=== PATIENT | male | born 2000 | race Caucasian/White ===

== ENCOUNTER 2020-11-24 10:59 | Emergency (ER) | payer OTHER, SELFPAY ==
--- NOTE | ~2020-11-24 | CT_ITS ---
EXAMINATION: CT abdomen pelvis w con DATE: 11/24/2020 13:30 INDICATION: Abdominal pain TECHNIQUE: Computed tomography (CT) of the abdomen and pelvis was performed with 100 mL Omnipaque-350 intravenous contrast. Automated exposure control and iterative reconstruction technique were employe d. The dose-length product was 191.61 mGy-cm. COMPARISON: None FINDINGS: Lung bases are clear. Heart size is normal. No pericardial or pleural effusion. Focal hepatic steatos is at the ligamentum teres. Gallbladder, spleen, pancreas, bilateral adrenal glands and kidneys are n ormal. Bowels including the appendix are normal. Bladder is normal. No free intraperitoneal gas or fl uid. No pathologically enlarged abdominal or pelvic lymphadenopathy. Bones are unremarkable. IMPRESSION: 1. No acute intra-abdominal/pelvic process. Reviewed, dictated and finalized at location B.
[2020-11-24 11:16] VITALS: BP 123/90; PULSE 82; RESP 16; TEMP 36.1; O2SAT 100
[2020-11-24 11:59] LABS: Basophils Absolute Auto 0.1 K/mm3 (0.0-0.1); Basophils Percent Auto 0.5 % (0.2-1.2); Eosinophils Absolute Auto 0.4 K/mm3 (0-0.3); Eosinophils Percent Auto 2.4 % (0-4.4); Hematocrit 48.8 % (42.0-52.0); Hemoglobin 16.4 g/dL (14.0-18.0); Immature Granulocyte Absolute 0.05 K/mm3 (0.00-0.031); Immature Granulocyte Percent A 0.3 % (0-0.5); Lymphocytes Absolute Auto 3.52 K/mm3 (0.9-3.2); Lymphocytes Percent Auto 23.2 % (18.3-44.2); Mean Corpuscular HGB Conc 33.6 g/dl (32-36); Mean Corpuscular Hemoglobin 29.8 pg (26-34); Mean Corpuscular Volume 88.7 fl (80-100); Mean Platelet Volume 9.1 fl (7.4-10.4); Monocytes Absolute Auto 1.1 K/mm3 (0.1-0.6); Monocytes Percent Auto 6.9 % (2.6-8.5); Neutrophils Absolute Auto 10.1 K/mm3 (1.3-6.7); Neutrophils Percent Auto 66.7 % (45.5-73.1); Platelet Count Result 338 k/mm3 (150-375); Red Cell Distribution Width 12.4 % (11.5-14.5); White Blood Count 15.2 K/mm3 (4.5-10.0)
[2020-11-24 12:04] LABS: Alanine Aminotransferase 45 U/L (4-50); Alkaline Phosphatase 86 U/L (38-126); Anion Gap 7 mmol/L (8-16); Aspartate Amino Transferase 47 U/L (17-59); Bilirubin,Total 0.5 mg/dL (0.2-1.3); Blood Urea Nitrogen 12 mg/dL (9-20); Calcium 9.9 mg/dL (8.4-10.2); Carbon Dioxide 32 mmol/L (22-30); Chloride 99 mmol/L (98-107); Estimated CRCL calculation 94 ml/min; Estimated Glomerular Filt Rate > 60; Glucose 94 mg/dL (65-110); Lipase 50 U/L (23-300); Potassium 3.8 mmol/L (3.4-5.0); Sodium 138 mmol/L (137-145)
[2020-11-24 12:28] LABS: Add Urine Microscopic? YES; Amorphous Sediment Urine Few; Appearance Urine Cloudy (Clear); Bacteria Urine Trace /hpf; Bilirubin Urine 2+ (Negative); Blood Urine Negative (Negative); Color Urine Yellow (Yellow); Glucose Urine UA Negative (Negative); Ketones Urine Negative (Negative); Leukocyte Esterase Ur 1+ LEU/UL (Negative); Mucus Urine Heavy /lpf; Nitrate Urine Negative (Negative); Protein Urine 2+ mg/dL (Negative); Specific Grav Ur 1.029 (1.001-1.035); Squamous Epithelial Cell Urine Rare /hpf (Few); WBC Urine 31-50 /hpf
[2020-11-24 12:50] VITALS: BP 121/82; PULSE 88; RESP 20; TEMP 37.1; O2SAT 100
[2020-11-24 13:20] VITALS: BP 119/82; PULSE 84; RESP 18; O2SAT 100
--- NOTE | 2020-11-24 13:53 | ED.ABDPAIN ---
HPI - Abdominal Pain General Chief Complaint: Abdominal Pain Stated Complaint: Abd Pain Time Seen by Provider: 11/24/20 12:38 Source: patient Mode of arrival: ambulatory Limitations: no limitations History of Present Illness HPI narrative: 20-year-old with no major medical problems here with complaints of periumbilical pain for past 2 days. He denies nausea, vomiting or fever or chills. No history of altered bowel habits. No history of trauma or any lifting injuries. MD elicited complaint: abdominal pain Onset (ago): day(s) (1) Pain Consistency: intermittent Location: periumbilical Quality: aching Radiation: none Migration to: no migration Exacerbating factors: nothing Relieving factors: nothing Associated symptoms: denies other symptoms Related Data Allergies Allergy/AdvReac Type Severity Reaction Status Date / Time No Known Allergies Allergy Verified 11/24/20 12:46 Review of Systems Review of Systems: All systems reviewed & are unremarkable except as noted in HPI and below Constitutional: Constitutional: Reports no additional constitutional complaints Eyes: Eyes: Reports no additional eye complaints ENT: Reports system reviewed and no additional complaints, except as documented Cardiovascular: Cardiovascular: Reports no additional cardiovascular complaints Respiratory: Respiratory: Reports no additional respiratory complaints Musculoskeletal: Musculoskeletal: Reports no additional musculoskeletal complaints Integumentary/Breasts: Skin/Breast: Reports system reviewed and no additional complaints, except as docu Neurologic: Reports system reviewed and no additional complaints, except as documented Psychiatric: Psychiatric: Reports no additional psychiatric complaints Exam Narrative: GENERAL: Well-appearing, well-nourished, and in no acute distress. HEAD: Normocephalic, atraumatic. EYES: PERRLA and EOMI. NECK: Supple. CHEST: Clear to auscultation. No respiratory distress. HEART: Regular rate and rhythm. No murmur heard. Normal peripheral pulses. ABDOMEN: Soft, nontender, nondistended, normal active bowel sounds. EXTREMITIES: Normal range of motion. No edema. SKIN: Warm, dry, no rash. NEURO: No focal deficits. Alert and oriented x3. PSYCH: Normal mood and affect. Course Course Emergency Course: Inform patient about his lab work, CT findings. Patient states that he has no pain at this time. Advised him to take antibiotic as prescribed for his urinary tract infection. Vital Signs Vital signs: Vital Signs Temperature 36.1 C L 11/24/20 11:16 Pulse Rate 82 11/24/20 11:16 Respiratory Rate 16 11/24/20 11:16 Blood Pressure 123/90 11/24/20 11:16 Pulse Oximetry 100 11/24/20 11:16 Temperature 36.1 C L 11/24/20 11:16 Pulse Rate 82 11/24/20 11:16 Respiratory Rate 16 11/24/20 11:16 Blood Pressure 123/90 11/24/20 11:16 Pulse Oximetry 100 11/24/20 11:16 MDM - Abdominal Pain Lab Data Result diagrams: 11/24/20 11:44 11/24/20 11:44 Labs: Lab Results 11/24/20 11/24/20 11/24/20 Range/Units 11:44 11:44 11:44 WBC 15.2 H (4.5-10.0) K/mm3 RBC 5.50 (4.6-6.20) M/mm3 Hgb 16.4 (14.0-18.0) g/dL Hct 48.8 (42.0-52.0) % MCV 88.7 (80-100) fl MCH 29.8 (26-34) pg MCHC 33.6 (32-36) g/dl RDW 12.4 (11.5-14.5) % Plt Count 338 (150-375) k/mm3 MPV 9.1 (7.4-10.4) fl Immature Gran % (Auto) 0.3 (0-0.5) % Neut % (Auto) 66.7 (45.5-73.1) % Lymph % (Auto) 23.2 (18.3-44.2) % Ogle % (Auto) 6.9 (2.6-8.5) % Eos % (Auto) 2.4 (0-4.4) % Baso % (Auto) 0.5 (0.2-1.2) % Lymph # (Auto) 3.52 H (0.9-3.2) K/mm3 Ogle # (Auto) 1.1 H (0.1-0.6) K/mm3 Eos # (Auto) 0.4 H (0-0.3) K/mm3 Baso # (Auto) 0.1 (0.0-0.1) K/mm3 Abs Immat Gran (auto) 0.05 H (0.00-0.031) K/mm3 Absolute Neuts (auto) 10.1 H (1.3-6.7) K/mm3 Absolute Nucleated RBC 0.0 (0.0-0.012) K/mm3 Nucleated RBC %
[2020-11-24 14:20] VITALS: BP 118/72; PULSE 85; RESP 18; O2SAT 99
[2020-11-24 14:30] VITALS: BP 119/82; PULSE 90; RESP 20; O2SAT 100
== END 2020-11-24 14:30 | disposition home or self-care (01) ==
PROVIDERS: Emergency Medicine; Emergency Provider Family Medicine
DX: N30.00 Acute cystitis without hematuria (principal); R10.33 Periumbilical pain
CPT/HCPCS: 36415; 74177; 80053; 81001; 83690; 85025; 87086; 87088; 99283; J3010; Q9967

== ENCOUNTER 2022-05-06 08:10 | Observation (INO) | payer MEDICAID, SELFPAY ==
[2022-05-06] VITALS (9 sets, daily range): BP systolic 100–142; BP diastolic 62–89; PULSE 43–93; RESP 15–18; TEMP 36.5–37.1; O2SAT 96–99
--- NOTE | ~2022-05-06 | CT_ITS ---
EXAMINATION: CT abdomen pelvis w con DATE: 05/06/2022 09:33 INDICATION: Right lower quadrant abdominal pain. TECHNIQUE: Computed tomography (CT) of the abdomen and pelvis was performed with 100 mL Omnipaque-350 intravenous contrast. Automated exposure control and iterative reconstruction technique were employe d. The dose-length product was 232.36 mGy-cm. COMPARISON: 11/24/2020 FINDINGS: Lung bases are clear. Heart size is normal. No pericardial or pleural effusion. Focal hepatic steatos is at the ligamentum teres. Mild periportal edema. There is also a trace amount of fluid situated bet ween the liver and the otherwise normal-appearing gallbladder. Liver, pancreas, bilateral adrenal gla nds and left kidney are normal. 2 mm stone at the distalmost right ureter within 1 cm of the ureterov esicular junction with mild right hydroureteronephrosis and delayed right nephrogram. Partially decom pressed bladder is normal. Bowels including the appendix are normal. No free intraperitoneal gas or f luid. No pathologically enlarged abdominal or pelvic lymphadenopathy. Bones are unremarkable. IMPRESSION: 1. Obstructing 2 mm stone at the distalmost right ureter with mild right hydroureteronephrosis. 2. Mild periportal edema and trace amount of pericholecystic fluid. This can be seen in the setting o f pyelonephritis although there are no typical regions of renal parenchymal hypoperfusion to more spe cifically suggest this, given the hydronephrosis would correlate with urinalysis to exclude associate d ascending urinary tract infection. Differential would also include hepatitis or other liver disease , heart failure or other cause of elevated right heart pressure and aggressive fluid resuscitation. Reviewed, dictated and finalized at location L. IMPRESSION: 1. Obstructing 2 mm stone at the distalmost right ureter with mild right hydrou reteronephrosis. 2. Mild periportal edema and trace amount of pericholecystic fluid. This can be seen in the setting of pyelonephritis although there are no typical regions of renal parenchymal hypoperfusion to more specifically suggest this, given the h ydronephrosis would correlate with urinalysis to exclude associated ascending u rinary tract infection. Differential would also include hepatitis or other live r disease, heart failure or other cause of elevated right heart pressure and ag gressive fluid resuscitation.
--- NOTE | ~2022-05-06 | US_ITS ---
EXAMINATION: US abdomen limited DATE: 05/06/2022 11:00 INDICATION: Right upper quadrant abdominal pain. TECHNIQUE: Multiple grayscale and Doppler ultrasound images of the abdomen were obtained. COMPARISON: CT abdomen and pelvis 05/06/2022 FINDINGS: The visualized portions of the body of the pancreas are normal. The liver is normal without focal lesion. There is normal flow in main portal vein. The gallbladder is normal in size. No gallst ones. Gallbladder wall thickening is seen. The common duct is normal and measures 4 mm. IMPRESSION: 1. Gallbladder wall thickening, most likely secondary to interstitial edema. Reviewed, dictated and finalized at location A.
[2022-05-06 08:36] LABS: Basophils Absolute Auto 0.1 K/mm3 (0.0-0.1); Basophils Percent Auto 0.3 % (0.2-1.2); Hematocrit 46.8 % (42.0-52.0); Immature Granulocyte Absolute 0.09 K/mm3 (0.00-0.031); Immature Granulocyte Percent A 0.4 % (0-0.5); Lymphocytes Absolute Auto 1.23 K/mm3 (0.9-3.2); Lymphocytes Percent Auto 5.4 % (18.3-44.2); Mean Corpuscular HGB Conc 34.2 g/dl (32-36); Mean Corpuscular Hemoglobin 29.6 pg (26-34); Mean Corpuscular Volume 86.7 fl (80-100); Monocytes Absolute Auto 1.4 K/mm3 (0.1-0.6); Monocytes Percent Auto 6.2 % (2.6-8.5); Neutrophils Absolute Auto 20.1 K/mm3 (1.3-6.7); Neutrophils Percent Auto 87.7 % (45.5-73.1); Platelet Count Result 310 k/mm3 (150-375); Red Cell Distribution Width 13.4 % (11.5-14.5); White Blood Count 22.9 K/mm3 (4.5-10.0)
--- NOTE | 2022-05-06 08:40 | ED.ABDPAIN ---
HPI - Abdominal Pain General Chief Complaint: Abdominal Pain Stated Complaint: vomiting Time Seen by Provider: 05/06/22 08:23 Source: patient and family Mode of arrival: ambulatory Limitations: no limitations History of Present Illness HPI narrative: The patient is a 21 yo male presenting to the emergency department for evaluation of nausea, vomiting, right lower quadrant abdominal pain. Pain began abruptly this morning at 2 AM. Patient states that awaken him from sleep. Patient reports associated nausea, nonbloody, nonbilious emesis. Patient states he feels dehydrated and has been unable to tolerate oral intake. Patient denies diarrhea or constipation. He denies dysuria or hematuria. Patient denies history of pain such as this in the past. Patient states that he got into a warm bathtub which did help improve his abdominal pain. Patient denies history of abdominal surgery or history of kidney stones. Patient does report history of daily smoking and marijuana use. He denies fever or chills. History was provided by speaking directly with the patient and his mother who is also at bedside. Related Data Allergies Allergy/AdvReac Type Severity Reaction Status Date / Time No Known Allergies Allergy Verified 05/06/22 11:51 Review of Systems Review of Systems: CONSTITUTIONAL: Denies fever, chills, or sweats. EYES: Denies visual changes, redness, or discharge. ENT: Denies rhinorrhea, congestion, sore throat, or otalgia. CARDIOVASCULAR: Denies chest pain, palpitations, or edema. RESPIRATORY: Denies cough or dyspnea. GASTROINTESTINAL: Reports abdominal pain, nausea and vomiting GENITOURINARY: Denies dysuria or hematuria. SKIN: Denies rash or itching. MUSCULOSKELETAL: Denies back pain, joint pain, or myalgia. NEUROLOGIC: Denies headache, numbness, or weakness. [facility] Past Medical History Medical History (Updated 05/06/22 @ 13:04 by Elidia Quinn MD) Asthma Cannabinoid hyperemesis syndrome Surgical History Surgical History (System 05/06/22 @ 11:51 by Gardenia Melendrez) History of tonsillectomy Social History Social History (System 05/06/22 @ 11:51 by Gardenia Melendrez) Smoking status: Current every day smoker Tobacco type: cigarettes Alcohol intake: current Substance use: current Substance use type: marijuana Living arrangements: with family Gender identity (if verbalized by the patient): Male Exam Narrative: GENERAL: Awake, alert, conversant, , Uncomfortable appearing HEAD: Normocephalic, atraumatic. EYES: PERRLA and EOMI. ENT: Nares clear, no rhinorrhea or epistaxis. Mucous membranes dry NECK: Supple. CHEST: No respiratory distress, breathing even and non labored HEART: Regular rate, sinus rhythm ABDOMEN:Non distended, tender in the right lower quadrant without rebound, rigidity or guarding, negative Rosvings sign, EXTREMITIES: Normal range of motion. No edema. SKIN: Warm, dry, no rash. NEURO:No focal deficits. Alert and oriented x3 Course Vital Signs Vital signs: Vital Signs Temperature 36.5 C 05/06/22 08:14 Pulse Rate 55 L 05/06/22 08:14 Respiratory Rate 16 05/06/22 08:14 Blood Pressure 136/89 05/06/22 08:14 Pulse Oximetry 99 05/06/22 08:14 Oxygen Delivery Room Air 05/06/22 08:14 Temperature 36.5 C 05/06/22 08:14 Pulse Rate 87 05/06/22 12:58 Respiratory Rate 18 05/06/22 12:58 Blood Pressure 142/75 H 05/06/22 12:58 Pulse Oximetry 98 05/06/22 12:58 Oxygen Delivery Room Air 05/06/22 08:14 MDM - Abdominal Pain MDM Narrative Medical decision making narrative: Medical decision making narrative: -Presentation: Patient is a 21-year-old male presenting to the emergency department for evaluation of right-sided abdominal pain, nausea and vomiting. At time of assessment, patient is mildly uncomfortable appearing, dehydrated appearing. He has focal right upper and right lower quadrant tenderness on exam. -DDX includes but is not limited to: Appe
[2022-05-06 08:47] LABS: Alanine Aminotransferase 64 U/L (6-50); Albumin Level 4.8 g/dL (3.5-5.1); Alkaline Phosphatase 87 U/L (38-126); Anion Gap 7 mmol/L (8-16); Aspartate Amino Transferase 112 U/L (17-59); Bilirubin,Total 0.8 mg/dL (0.2-1.3); Blood Urea Nitrogen 13 mg/dL (9-20); Calcium 9.4 mg/dL (8.4-10.2); Carbon Dioxide 28 mmol/L (22-30); Chloride 102 mmol/L (98-107); Estimated CRCL calculation 92 ml/min; Estimated Glomerular Filt Rate > 60; Glucose 125 mg/dL (65-110); Lipase 35 U/L (23-300); Potassium 3.6 mmol/L (3.4-5.0); Sodium 137 mmol/L (137-145)
[2022-05-06 08:53] LABS: Appearance Urine Cloudy (Clear); Bacteria Urine None Seen /hpf; Bilirubin Urine 2+ (Negative); Blood Urine 3+ (Negative); Color Urine Dark Yellow (Yellow); Glucose Urine UA Negative (Negative); Ketones Urine 4+ mg/dL (Negative); Leukocyte Esterase Ur 1+ LEU/UL (Negative); Mucus Urine Present /lpf; Nitrate Urine Negative (Negative); Protein Urine 3+ mg/dL (Negative); RBC Urine 21-50 /hpf (0-2); Squamous Epithelial Cell Urine None seen /hpf (Few); pH Urine 5.5 (5.0-9.0)
[2022-05-06 08:56] LABS: Specific Grav Ur 1.046 (1.001-1.035)
[2022-05-06 08:57] LABS: Add Urine Microscopic? YES
[2022-05-06] MEDS: SODIUM CHLORIDE 0.9% IV 1,000 ML 999 ML IV CONT ×2 (08:57→08:58)
[2022-05-06] MEDS: ONDANSETRON INJ 4 MG/2 ML VIAL IV PUSH (08:58)
[2022-05-06] MEDS: MORPHINE SULFATE (*CRX) 4 MG/ML INJ IV PUSH ×3 (10:28→19:09)
[2022-05-06] MEDS: DICYCLOMINE HCL INJ 20 MG/2 ML VIAL IM (12:56)
[2022-05-06] MEDS: LACTATED RINGERS 1,000 ML 125 ML IV CONT (12:56)
[2022-05-06] MEDS: CIPROFLOXACIN 400 MG/D5W 200ML 200 ML 200 MG IVPB ×2 (13:34→20:26)
--- NOTE | 2022-05-06 14:13 | PM.IMHP ---
H&P: HPI History of Present Illness Date/Time: 05/06/22 14:13 Chief Complaint: Abdominal pain Narrative: This is a 21-year-old male patient who came to the emergency room with nausea vomiting and right lower flank pain. The pain started around 2:00 a.m. this morning. The pain was so severe that it woke him from a sound sleep. The patient had nonbloody emesis. The patient states that he is not able to keep anything down. He denies any diarrhea or constipation. He denies any difficulty urinating. The he denies any previous kidney stones or any surgery for kidney stone. His white count was noted to be 22.9. Absolute neutrophils 20.1. AST is 112 and ALT is 64. Urine is positive for UTI. The patient was given IV Zofran IV fluids IV Tylenol IV morphine and Cipro in the emergency room. Abdominal pelvis CT was read as the following?Obstructing 2 mm stone at the distalmost right ureter with mild right hydroureteronephrosis. 2. Mild periportal edema and trace amount of pericholecystic fluid. This can be seen in the setting of pyelonephritis although there are no typical regions of renal parenchymal hypoperfusion to more specifically suggest this, given the hydronephrosis would correlate with urinalysis to exclude associated ascending urinary tract infection. Differential would also include hepatitis or other liver disease, heart failure or other cause of elevated right heart pressure and aggressive fluid resuscitation. Abdominal ultrasound was read as gallbladder wall thickening most likely secondary to interstitial edema. The patient is being admitted to observation status on the date of service of 05/06/2022. Review of Systems Review of Systems: All systems reviewed & are unremarkable except as noted in HPI and below Constitutional: Constitutional: Reports as per HPI and Reports no additional constitutional complaints Eyes: Eyes: Reports as per HPI and Reports no additional eye complaints ENT: Reports system reviewed and no additional complaints, except as documented and Reports Normal hearing present Cardiovascular: Cardiovascular: Reports no additional cardiovascular complaints Respiratory: Respiratory: Reports no additional respiratory complaints and Reports no additional respiratory complaints Gastrointestinal: Gastrointestinal: Reports as per HPI and Reports no additional gastrointestinal complaints Musculoskeletal: Musculoskeletal: Reports no additional musculoskeletal complaints Integumentary/Breasts: Skin/Breast: Reports system reviewed and no additional complaints, except as docu and Reports as per HPI Neurologic: Reports system reviewed and no additional complaints, except as documented, Reports as per HPI and Reports Normal hearing present Psychiatric: Psychiatric: Reports no additional psychiatric complaints and Reports as per HPI Endocrine: Endocrine: Reports no additional endocrine complaints Hematologic/Lymphatic: Hematologic/Lymphatic: Reports no additional hematologic/lymphatic complaints Allergic/Immunologic: Allergic/Immunologic: Reports no additional allergic/immunologic complaints [facility] Past Medical History Medical History (Updated 05/06/22 @ 17:31 by Meera Olivo NP) Anxiety Asthma Cannabinoid hyperemesis syndrome Tobacco abuse Surgical History Surgical History (Updated 05/06/22 @ 17:18 by Meera Olivo NP) H/O oral surgery History of tonsillectomy With adenoidectomy Family History Family History (Updated 05/06/22 @ 17:24 by Meera Olivo NP) Father Lung cancer Social History Social History (Updated 05/06/22 @ 17:25 by Meera Olivo NP) Social History: The patient recently got out of [facility] where he had been 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 The patient lives with his mom. The patient has a history of methamphetamine use and marijuana as well. The patient admits to using marijuana daily. He denies any alcohol. He is single and has 2 children. He works for a [employer] company he smo
--- NOTE | 2022-05-06 17:48 | ADMGEN ---
This patient, Gaviota Escobar, was admitted to [facility] Surg Room 311-01. Report received from RUSTY Viera. Patient/family oriented to hospital policies and general routines including ID bracelet, bed and alarms, visiting hours, pain management, procedures, bathroom and other care routines, personal items, smoking policy, room service/diet, and visiting hours. Information on how to activate the Rapid Response Team has been discussed. Patient/Family are encouraged to report perceived risks to care and to ask questions if they do not understand what they are told or what they should do.
[2022-05-06] MEDS: FAMOTIDINE 20 MG/2 ML VIAL IV PUSH (20:26)
[2022-05-07 06:34] VITALS: BP 107/61; PULSE 59; RESP 16; TEMP 36.3; O2SAT 99
[2022-05-07] MEDS: LACTATED RINGERS 1,000 ML 125 ML IV CONT (06:41)
--- NOTE | 2022-05-07 07:26 | WPDHPUPDATE1 ---
History and Physical Update Update Date/Time: 05/07/22 07:26 History and Physical has been reviewed, including an updated exam of the patient. Imaging this morning shows right urteral stone in either in bladder or right at right UVJ. Will pivot to cystoscopy, right ureteroscopy with stone extraction (instead of ESWL). Risks, benefits, and alternatives have been discussed and questions answered. Patient agrees to proceed with procedure.
[2022-05-07 07:28] LABS: Basophils Absolute Auto 0.1 K/mm3 (0.0-0.1); Basophils Percent Auto 0.6 % (0.2-1.2); Eosinophils Absolute Auto 0.1 K/mm3 (0-0.3); Hematocrit 43.7 % (42.0-52.0); Hemoglobin 14.7 g/dL (14.0-18.0); Immature Granulocyte Absolute 0.04 K/mm3 (0.00-0.031); Immature Granulocyte Percent A 0.4 % (0-0.5); Lymphocytes Percent Auto 22.1 % (18.3-44.2); Mean Corpuscular HGB Conc 33.6 g/dl (32-36); Mean Corpuscular Hemoglobin 29.6 pg (26-34); Mean Corpuscular Volume 88.1 fl (80-100); Mean Platelet Volume 10.3 fl (7.4-10.4); Monocytes Absolute Auto 1.2 K/mm3 (0.1-0.6); Monocytes Percent Auto 11.1 % (2.6-8.5); Neutrophils Absolute Auto 6.7 K/mm3 (1.3-6.7); Neutrophils Percent Auto 64.8 % (45.5-73.1); Platelet Count Result 225 k/mm3 (150-375); Red Blood Count 4.96 M/mm3 (4.6-6.20); Red Cell Distribution Width 13.6 % (11.5-14.5); White Blood Count 10.4 K/mm3 (4.5-10.0)
[2022-05-07] MEDS: FAMOTIDINE 20 MG/2 ML VIAL IV PUSH (08:22)
[2022-05-07] MEDS: CIPROFLOXACIN 400 MG/D5W 200ML 200 ML 200 MG IVPB (08:22)
--- NOTE | 2022-05-07 08:41 | WPDURCON ---
Assessment and Plan Assessment and plan (1) Thickening of wall of gallbladder: Code(s): K82.8 - Other specified diseases of gallbladder Status: Acute (2) Right ureteral stone: Code(s): N20.1 - Calculus of ureter Status: Acute Assessment and Plan: Abdominal pain of a on certain etiology. Unclear whether his presenting complaints could have been either do a tiny right distal ureteral stone or some inflammation of his gallbladder. This morning, he is feeling much better suggesting he may have passed a ureteral stone. I have no plans for intervention. I think he has either passed his tiny right ureteral stone or is highly likely to do so. I would recommend follow-up imaging with a renal ultrasound in 3-4 weeks to ensure the hydronephrosis resolves. Urology Consult Note HPI Date Seen: 05/07/22 Requesting Physician: Gloria Hebert PA-C Primary Care Provider: SURVEY COORDINATOR PHYSICIAN Consult Narrative Narrative: Gaviota Escobar is a 21 year old male, previously unknown to our practice and without history of urolithiasis, who presents to the ER with right-sided abdominal pain, nausea and vomiting. Denies significant ureter voiding symptoms or hematuria but his urinalysis did suggest possible urinary tract infection. CT imaging demonstrated a 1-2 mm minimally obstructing right distal ureteral calculus and some thickening of his gallbladder wall. He was admitted and empirically started on ciprofloxacin. Overnight his pain has essentially completely resolved. Review of Systems Cardiovascular: Cardiovascular: Denies chest pain, Denies lightheadedness, Denies palpitations and Denies dyspnea Respiratory: Respiratory: Denies dyspnea Gastrointestinal: Gastrointestinal: Denies diarrhea, Denies nausea and Denies vomiting Genitourinary: Genitourinary: Denies hematuria and Denies dysuria Endocrine: Endocrine: Denies palpitations [facility] Past Medical History Medical History (Updated 05/07/22 @ 08:45 by Bebo Vann MD) Anxiety Asthma Cannabinoid hyperemesis syndrome Tobacco abuse Surgical History Surgical History (Updated 05/06/22 @ 17:18 by Meera Olivo NP) H/O oral surgery History of tonsillectomy With adenoidectomy Family History Family History (Updated 05/06/22 @ 17:24 by Meera Olivo NP) Father Lung cancer Social History Social History (Updated 05/06/22 @ 17:25 by Meera Olivo NP) Social History: The patient recently got 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 The patient lives with his mom. The patient has a history of methamphetamine use and marijuana as well. The patient admits to using marijuana daily. He denies any alcohol. He is single and has 2 children. He works for a [employer] company he smokes a pack a cigarettes a day. Code status full code Smoking packs per day: 1 Smoking cigarettes per day: 20.0 Years smoked: 11 Smoking pack-years: 11.00 Smoking status: Current every day smoker Tobacco type: cigarettes Alcohol intake: current Drinks per week: 0 Substance use: current Substance use type: marijuana Lack of Transportation: No Lack of Food: Never True Current Housing: I Have Housing Concerned About Future Housing: No Difficulty Paying Gas/Electric Bills: No Difficulty Paying for Meds: No Currently Unemployed: No Education: High School Diploma/GED Difficulty w/ Childcare or Family Care: No Living arrangements: with family Gender identity (if verbalized by the patient): Male Spiritual care concerns: No Meds Home Medications and Allergies Home Medications Medication Instructions Recorded Confirmed Type No Home Medications 05/06/22 05/06/22 History Allergies Allergy/AdvReac Type Severity Reaction Status Date / Time No Known Allergies Allergy Verified 05/06/22 17:49 Vital Signs Vital Signs - 24 hr 05/06/22 09:48 05/06/22 10:58 05/06/22 12:58 Te
[2022-05-07 11:27] LABS: Lactic Acid Reflex 1.9 mmol/L (0.7-2.0)
[2022-05-07 11:28] LABS: Alanine Aminotransferase 60 U/L (6-50); Albumin Level 3.6 g/dL (3.5-5.1); Alkaline Phosphatase 57 U/L (38-126); Anion Gap 3 mmol/L (8-16); Aspartate Amino Transferase 96 U/L (17-59); Bilirubin,Total 0.7 mg/dL (0.2-1.3); Blood Urea Nitrogen 9 mg/dL (9-20); Calcium 8.6 mg/dL (8.4-10.2); Carbon Dioxide 31 mmol/L (22-30); Chloride 101 mmol/L (98-107); Estimated CRCL calculation 101 ml/min; Estimated Glomerular Filt Rate > 60; Glucose 95 mg/dL (65-110); Potassium 3.6 mmol/L (3.4-5.0); Sodium 135 mmol/L (137-145)
[2022-05-07 14:00] VITALS: BP 112/79; PULSE 47; RESP 18; TEMP 36.6; O2SAT 99
--- NOTE | 2022-05-07 15:26 | PM.DS ---
DS: Admitting Diagnosis Discharge Date 05/07/2022 Admitting Diagnosis right flank pain DS: Discharge Diagnosis Discharge Diagnosis (1) Calculus, ureteral: Code(s): N20.1 - Calculus of ureter Status: Acute Assessment and Plan: Patient presented with right flank pain CT of the abdomen/pelvis showed obstructing 2 mm stone at the distal most right ureter with mild right hydroureteronephrosis Supportive care provided including IV fluids analgesics Patient's pain improved. Suspect patient passed the stone No further urologic intervention required Per Urology, patient will have repeat renal ultrasound in 3-4 weeks to ensure resolution of hydronephrosis (2) UTI (urinary tract infection): Code(s): N39.0 - Urinary tract infection, site not specified Status: Suspected Assessment and Plan: Urinalysis on presentation was slightly abnormal with cloudy urine, 3+ blood, 1+ leuk esterase, no squamous cells, negative nitrates Patient did not have dysuria, urgency, or frequency. Only complaint was dark urine which was likely due to dehydration He did have marked leukocytosis on presentation, however could be reactive secondary to kidney stone/passage of stone Remained afebrile Patient started on ciprofloxacin on admission Urine cultures pending at time of discharge, decision made to defer antibiotics while awaiting culture results as patient was asymptomatic Patient aware he will be contacted by phone if antibiotics are indicated based on cultures (3) Acute dehydration: Code(s): E86.0 - Dehydration Status: Acute Assessment and Plan: Patient appeared acutely dehydrated on presentation Appropriately rehydrated with IV fluids and tolerating oral intake Educated on importance of maintaining adequate p.o. hydration (4) Thickening of wall of gallbladder: Code(s): K82.8 - Other specified diseases of gallbladder Status: Acute Assessment and Plan: Patient had right flank/right upper quadrant pain on presentation therefore CT of the abdomen/pelvis obtained which showed mild periportal edema and trace pericholecystic fluid Follow-up ultrasound showed gallbladder wall thickening most likely secondary to interstitial edema Patient does report symptoms following fatty foods Discussed case with general surgeon on-call, Dr. Hernandez. Recommends outpatient HIDA scan and surgical follow-up. Patient started on low-fat diet which she will continue. Education provided General surgery follow-up referral provided (5) Tobacco abuse: Code(s): Z72.0 - Tobacco use Status: Acute Assessment and Plan: Patient smokes 1 pack of cigarettes per day Educated on smoking cessation. Patient is not motivated to quit smoking at this time DS: Summary Hospital Course Hospital Course: date of admission: 05/06/2022 date of discharge: 05/07/2022 Gaviota Escobar is a 21-year-old male with a history of tobacco abuse, anxiety, asthma who presented to the emergency department on 05/06/22 with complaints of nausea, vomiting, and right lower quadrant abdominal pain that began abruptly. On presentation to the ED, his vital signs were stable, he was afebrile, WBC 22.9, AST and ALT mildly elevated, additional laboratory workup unremarkable, UA grossly abnormal with cloudy urine, 3+ blood, 21-50 RBC. he was admitted to the hospitalist service for further evaluation and management and was seen in consultation by Urology. Please see above for further details. Patient had marked symptomatic improvement suspects that he passed ureteral stone. There are no plans for urologic intervention. He will have a repeat renal ultrasound in 3-4 weeks to ensure resolution of hydronephrosis. His renal function was appropriate. CT scan was abnormal suggesting gallbladder wall thickening secondary to interstitial edema. Patient did complain of right upper quadrant symptoms and reports recen
== END 2022-05-07 16:00 | disposition home or self-care (01) ==
LOC: ANHED 13:04 → ANH3MEDSUR 17:17
PROVIDERS: Nurse Practitioner; Admitting Provider Internal Medicine; Emergency Provider Emergency Medicine; Visit Provider Physician Assistant
DX: N13.2 Hydronephrosis with renal and ureteral calculous obstruction (principal); N39.0 Urinary tract infection, site not specified; E86.0 Dehydration; K82.8 Other specified diseases of gallbladder; F41.9 Anxiety disorder, unspecified; D72.829 Elevated white blood cell count, unspecified; J45.909 Unspecified asthma, uncomplicated; F17.210 Nicotine dependence, cigarettes, uncomplicated; F12.90 Cannabis use, unspecified, uncomplicated; F10.90 Alcohol use, unspecified, uncomplicated; F15.90 Other stimulant use, unspecified, uncomplicated
CPT/HCPCS: 36415; 74177; 76705; 80053; 81001; 83605; 83690; 83735; 84443; 85025; 87040; 87086; 96361; 96365; 96366; 96367; 96372; 96375; 96376; 99285; G0378; G0379; J0131; J0500; J0744; J2270; J2405; J7030; J7120; Q9967